=== PATIENT | female | born 1945 | race Caucasian/White ===

== ENCOUNTER 2016-11-30 00:55 | Emergency (ER) | payer MEDICARE, OTHER ==
[~2016-11-30] VITALS: Ht 167.6 cm; Wt 89.6 kg
[~2016-11-30 00:55] MED LIST: CEPH500C3 PO; TYLE3 PO
[2016-11-30 00:57] VITALS: BP 142/82; PULSE 87; RESP 16; TEMP 97.9; O2SAT 95
[2016-11-30 01:25] VITALS: BP 127/72; PULSE 84; RESP 18
[2016-11-30] MEDS ORDERED: SIMV40TA PO (01:41)
[2016-11-30] MEDS ORDERED: LOSA100T PO (01:41)
[2016-11-30] MEDS ORDERED: ALBI1INJ2 SQ (01:41)
[2016-11-30] MEDS ORDERED: DAPA1TAB3 PO (01:41)
[2016-11-30] MEDS ORDERED: ASPI1TAB69 PO (01:41)
[2016-11-30] MEDS ORDERED: METF500T PO (01:41)
[2016-11-30] MEDS ORDERED: GLIP10TA6 PO (01:41)
[2016-11-30] MEDS ORDERED: HYDR25TA5 PO (01:41)
--- NOTE | 2016-11-30 02:07 | PD ---
HPI Chief Complaint: Headache Time Seen by Provider: 01:38 Travel History International Travel<30 days: No Contact w/Intl Traveler<30days: No Traveled to known affect area: No History of Present Illness HPI 71-year-old female presents to the emergency department by private transportation for complaint of right posterior scalp pain. Patient states that noted symptoms just prior to arrival to the emergency department. Patient states she's been her usual state of fair health with history of diabetes hypertension and dyslipidemia fell asleep while on the couch and when she awakened she noticed a soreness to her scalp. Patient states when she touches the scalp the pain is 8/10 in intensity. Patient states she feels soft tissue swelling or lump to the right posterior scalp area. Patient states that the skin feels sensitive. Patient denies any trauma or injury. Patient has some headache but mostly scalp tenderness. Patient denies any neck stiffness or pain. Patient's had no pain in the temporal area no visual disturbance. Patient has no upper extremity or lower extremity numbness tingling or weakness. Patient's had no ataxia of gait. Patient has had no confusion visual disturbance or speech disturbance. Patient's had no fever or chills or respiratory illness. Patient rates pain as 5/10 intensity. Patient took no medication prior to arrival to the emergency prior. Patient states discomfort is present as a dullness however increases in pain at 8/10 in intensity with direct palpation and patient is able to localize the pain to a fingertip size area of discomfort noted on palpation. PFSH Past Medical History Narrative Medical Hypertension dyslipidemia diabetes knee surgery; occasional alcohol use; nursing notes reviewed Heart Rhythm Problems: No High Cholesterol: Yes Congestive Heart Failure: No Diabetes: Yes Patient Takes Glucophage: Yes Diminished Hearing: No Hypertension: Yes Tetanus Vaccination: Unknown Influenza Vaccination: No ?: Not Past Surgical History Surgical History: No Previous Surgery Section: Yes (X 2) Thoracic Surgery: Yes (RIGHT KNEE) Social History Alcohol Use: Yes ("once a month") Tobacco Use: No Substance Use: No Allergies-Medications (Allergen,Severity, Reaction): Coded Allergies: No Known Allergies (Verified , 11/30/16) Reported Meds & Prescriptions Reported Meds & Active Scripts Active Reported Hydrochlorothiazide 25 Mg Tab 25 Mg PO DAILY Aspirin 81 Mg Tabdr 81 Mg PO DAILY Losartan (Losartan Potassium) 100 Mg Tab 100 Mg PO DAILY Metformin (Metformin HCl) 500 Mg Tab 500 Mg PO BIDPC With meals Tanzeum 4-Pack Inj (Albiglutide) 50 Mg Pfpen 50 Mg SQ Q7D Glipizide 10 Mg Tab 10 Mg PO BIDAC Take 30 minutes before a meal Simvastatin 40 Mg Tab 40 Mg PO HS Farxiga (Dapagliflozin) 10 Mg Tab 10 Mg PO DAILY Review of Systems Except as stated in HPI: all other systems reviewed are Neg General / Constitutional: No: Fever, Chills Eyes: No: Diploplia, Blurred Vision, Photophobia, Visual changes HENT: Positive: Headaches, No: Lightheadedness (scalp tenderness), Neck Stiffness, Neck Pain Cardiovascular: No: Chest Pain or Discomfort Respiratory: No: Shortness of Breath Gastrointestinal: No: Nausea, Vomiting, Abdominal Pain Genitourinary: No: Flank Pain Musculoskeletal: No: Myalgias, Arthralgias Skin: Positive Lumps, No Rash, No Itching, No Hives Neurologic: Positive: Headache, No: Weakness, Dizziness, Syncope, Focal Abnormalities, Coordination Problem, Ataxia, Change in Mentation, Slurred Speech , Paresthesia, Incontinence, Seizures, Sensory Disturbance Psychiatric: No: Anxiety, Depression Endocrine: No: Heat Intolerance Hematologic/Lymphatic: No: Easy Bruising Physical Exam Narrative GENERAL: Well-developed well-nourished female in no acute distress no respiratory distress; GCS 15 SKIN: Warm and dry. HEAD: Atraumatic. Normocephalic. Small palpable soft tissue mass no induration no fluctuance no vesicles no pustule no rash no erythema; reproducible tenderness to palpation and point tenderness for reproducible pain to the right posterior scalp. No bony abnormality. No rash, no ecchymosis, no abrasion or laceration, no vesicles, no pustules, no petechia, no purpura. EYES: Pupils equal and round. No scleral icterus. No injection or drainage. ENT: No nasal bleeding or discharge. Mucous membranes pink and moist. NECK: Trachea midline. No JVD. Supple no meningismus no nuchal rigidity. CARDIOVASCULAR: Regular rate and rhythm. RESPIRATORY: No accessory muscle use. Clear to auscultation. Breath sounds equal bilaterally. GASTROINTESTINAL: Abdomen soft, non-tender, nondistended. Hepatic and splenic margins not palpable. MUSCULOSKELETAL: Extremities without clubbing, cyanosis, or edema. No obvious deformities. NEUROLOGICAL: Awake and alert. No obvious cranial nerve deficits. Motor grossly within normal limits. Five out of 5 muscle strength in the arms and legs. Normal speech. PSYCHIATRIC: Appropriate mood and affect; insight and judgment normal. Data Data Last Documented VS Vital Signs Date Time Temp Pulse Resp B/P Pulse Ox O2 Delivery O2 Flow Rate FiO2 11/30/16 02:23 88 17 144/75 94 11/30/16 01:25 Room Air 11/30/16 00:[address] Brain W/O Iv Contrast(Rout) (11/30/16 ) Acetaminophen (Tylenol) (11/30/16 02:15) [facility] Medical Decision Making Medical Screen Exam Complete: Yes Emergency Medical Condition: Yes Medical Record Reviewed: Yes Interpretation(s) CT brain w/o contrast: CONCLUSION: Normal examination. Shawn Hinds Jr., MD on November 30, 2016 at 2:20 Board Certified Radiologist. This report was verified electronically. Differential Diagnosis Headache, abscess, cellulitis, shingles; this does not sound like temporal arteritis Narrative Course Patient sent for imaging study At 2:30 AM imaging study reveals no acute soft tissue bony or intracranial abnormality; patient on re-exam has reproducible point tenderness to the scalp with soft tissue area of mild swelling. Findings may be reflective of early shingles versus early abscess but is clearly reproducible pain to palpation for soft tissue abnormality. Patient administered acetaminophen. Patient appears stable for outpatient management. Plan will be to start patient on Keflex but not antiviral-acyclovir as no rash noted. Patient will be encouraged to manage pain with acetaminophen. Patient encouraged to return to the emergency department for pain increasing pain increasing area of discomfort fever development of rash or any concerns; otherwise she is encouraged to follow closely with her primary care provider. Diagnosis Primary Impression: Scalp pain Referrals: Primary Care Physician 1 day Patient Instructions: General Instructions Additional Instructions: Follow-up with primary care provider call office in a.m. Take acetaminophen/Tylenol every 4 hours as needed for fever 100.4F or greater or for minor pain and/or ibuprofen/Advil/Motrin every 6-8 hours as needed for pain associated with inflammation or for fever 100.4F or greater Return to the emergency department for pain fever vomiting or any concerns Med/Other Pt SpecificInfo: Prescription(s) given Scripts Cephalexin (Keflex)500 Mg Xod292 Mg PO Q6H 7 Days Ref 0 Prov:Maya Obrien MD 11/30/16 Disposition: 01 DISCHARGE HOME Condition: Stable Maya Obrien MD November 30, 2016 02:07
[2016-11-30] MEDS ORDERED: ACETAMINOPHEN 325 MG TAB PO ONE (02:15)
--- NOTE | 2016-11-30 02:22 | RADHPO ---
EXAM DATE/TIME: 11/30/2016 01:54 [facility] COMPARISON: No previous studies available for comparison. INDICATIONS : Right occipital pain. RADIATION DOSE: 59.25 CTDIvol (mGy) MEDICAL HISTORY : Hypertension. Diabetes mellitus type 2. SURGICAL HISTORY : None. ENCOUNTER: Initial ACUITY: 1 day PAIN SCALE: 5/10 LOCATION: Right occipital TECHNIQUE: Multiple contiguous axial images were obtained of the head. Using automated exposure control and adj ustment of the mA and/or kV according to patient size, radiation dose was kept as low as reasonably a chievable to obtain optimal diagnostic quality images. FINDINGS: CEREBRUM: The ventricles are normal for age. No evidence of midline shift, mass lesion, hemorrhage or acute in farction. No extra-axial fluid collections are seen. POSTERIOR FOSSA: The cerebellum and brainstem are intact. The 4th ventricle is midline. The cerebellopontine angle i s unremarkable. EXTRACRANIAL: The visualized portion of the orbits is intact. SKULL: The calvaria is intact. No evidence of skull fracture. CONCLUSION: Normal examination. Shawn Hinds Jr., MD on November 30, 2016 at 2:20 Board Certified Radiologist. This report was verified electronically.
[2016-11-30 02:23] VITALS: BP 144/75; PULSE 88; RESP 17; O2SAT 94
[2016-11-30] MEDS ORDERED: CEPH-460 PO (02:37)
[2016-11-30] MEDS ORDERED: CEPHALEXIN MONOHYDRATE 500 MG CAP PO ONE (02:45)
[2016-11-30 02:53] VITALS: RESP 17
== END 2016-11-30 02:53 | disposition home or self-care (01) ==
LOC: PHED 00:55
DX: R51 Headache (principal); R22.0 Localized swelling, mass and lump, head; L98.8 Other specified disorders of the skin and subcutaneous tissue; I10 Essential (primary) hypertension; E11.9 Type 2 diabetes mellitus without complications; E78.00 Pure hypercholesterolemia, unspecified; E78.5 Hyperlipidemia, unspecified
CPT/HCPCS: 70450